=== PATIENT | female | born 1960 ===

== ENCOUNTER 2017-07-14 09:44 | Inpatient (IN) | payer BC ==
[2017-07-14 09:50] VITALS: BMI 32.5
--- NOTE | 2017-07-14 10:37 | ED PDOC ---
HPI: General Adult Time Seen by Provider: 07/14/17 10:24 Chief Complaint (Nursing): Back Pain Chief Complaint (Provider): neck pain History Per: Patient Additional Complaint(s): 56-year-old female presents to emergency department for evaluation of persistent neck pain ongoing for 2 months. Patient has been taking pain medication daily but still has persistent pain. She was told by her neurosurgeon , Dr. Basurto to come to emergency department today for further evaluation. Patient states she does have pain that radiates into upper extremities bilaterally intermittently. She denies any chest pain, shortness of breath or dyspnea on exertion upon arrival today. Past Medical History Reviewed: Historical Data, Nursing Documentation, Vital Signs Vital Signs: Last Vital Signs Temp 97.6 F 07/14/17 13:08 Pulse 76 07/14/17 13:50 Resp 18 07/14/17 13:50 BP 136/78 07/14/17 13:08 Pulse Ox 97 07/14/17 13:08 - Medical History PMH: Diabetes, HTN - Surgical History Surgical History: Appendectomy, (x 1) - Family History Family History: States: No Known Family Hx - Living Arrangements Living Arrangements: With Family - Social History Current smoker - smoking cessation education provided: No Alcohol: None Drugs: Denies - Home Medications Home Medications: Ambulatory Orders Medication Instructions Recorded Aspirin [Ecotrin] 81 mg PO DAILY 07/14/17 Dapagliflozin Propanediol [Farxiga] 10 mg PO DAILY 07/14/17 Dulaglutide [Trulicity] 1.5 mg SC WE 07/14/17 Fluticasone Nasal [Flonase] 1 spray SERGIO BID PRN 07/14/17 Glipizide [Glipizide ER] 2.5 mg PO DAILY 07/14/17 Ibuprofen/Famotidine [Duexis 1 tab PO Q8H PRN 07/14/17 800-26.6 mg Tablet] Losartan [Cozaar] 100 mg PO DAILY 07/14/17 Metformin HCl [Fortamet] 1,000 mg PO BID 07/14/17 Pioglitazone [Actos] 30 mg PO DAILY 07/14/17 Vortioxetine Hydrobromide 10 mg PO DAILY 07/14/17 [Trintellix] - Allergies Allergies/Adverse Reactions: Allergies Allergy/AdvReac Type Severity Reaction Status Date / Time No Known Allergies Allergy Verified 10/23/17 10:29 Review of Systems ROS Statement: Except As Marked, All Systems Reviewed And Found Negative Constitutional: Negative for: Fever Cardiovascular: Negative for: Chest Pain Gastrointestinal: Negative for: Nausea, Vomiting Musculoskeletal: Positive for: Neck Pain Neurological: Negative for: Headache, Dizziness Physical Exam - Reviewed Nursing Documentation Reviewed: Yes Vital Signs Reviewed: Yes - Physical Exam Appears: Positive for: Well, Non-toxic, No Acute Distress Skin: Negative for: Rash Eye Exam: Positive for: Normal appearance Neck: Positive for: Pain On Movement Of Neck (tenderness to cervical spine along midline and bilateral paraspinal regions, no step off) Cardiovascular/Chest: Positive for: Regular Rate, Rhythm Respiratory: Positive for: Normal Breath Sounds Gastrointestinal/Abdominal: Positive for: Soft. Negative for: Tenderness, Distended, Guarding, Rebound Extremity: Positive for: Normal ROM. Negative for: Pedal Edema Neurologic/Psych: Positive for: Alert, Oriented - Laboratory Results Result Diagrams: 07/14/17 10:45 07/14/17 10:45 Urine POC: Negative - ECG Interpretation Of ECG: NSR 84 bpm, no acute finding, reviewed by PA and ED attending. O2 Sat by Pulse Oximetry: 97 Pulse Ox Interpretation: Normal - Other Rad Chest bedside X-Ray: Interpreted by Me, Viewed By Me X-Ray Interpretation: no acute finding Medical Decision Making Medical Decision Makin56 year old with female with persistent neck pain Plan: CBC CMP PT/PTT UA CXR EKG IVF Case was d/w Dr. basurto's office, patient to be admitted for OR in the AM. Dr. James to admit. Case was d/w Dr. James. Patient is aware of and agrees with admission. Disposition - Clinical Impression Clinical Impression: Chronic neck pain, Intractable pain - Patient ED Disposition Is Patient to be Admitted: Yes - Disposition Disposition Time: 15:03 Condition: FAIR - Pt Status Changed To: Hospital Disposition Of: Inpatient - Admit Certification Admit to Inpatient:: After my assessment, the patient will require hospitalization for at least two midnights. This is because of the severity of symptoms shown, intensity of services needed, and/or the medical risk in this patient being treated as an outpatient. Results - Lab Results Lab Results: 07/14/17 07/14/17 07/14/17 10:45 10:45 10:45 WBC 11.8 H RBC 4.62 Hgb 12.8 Hct 37.7 MCV 81.7 MCH 27.7 MCHC 33.9 RDW 15.1 H Plt Count 295 MPV 7.6 Neut % (Auto) 69.3 Lymph % (Auto) 23.0 [place] % (Auto) 3.5 Eos % (Auto) 3.7 Baso % (Auto) 0.5 Neut # 8.2 H Lymph # 2.7 [place] # 0.4 Eos # 0.4 Baso # 0.1 PT 11.3 INR 1.0 APTT 30.5 Sodium Potassium Chloride Carbon Dioxide Anion Gap BUN Creatinine Est GFR ( Amer) Est GFR (Non-Af Amer) Random Glucose Calcium Total Bilirubin AST ALT Alkaline Phosphatase Total Protein Albumin Globulin Albumin/Globulin Ratio Urine Color Yellow Urine Clarity Cloudy Urine pH 5.0 Ur Specific [place] 1.021 Urine Protein 30 Urine Glucose (UA) >=500 Urine Ketones Negative Urine Blood Negative Urine Nitrate Negative Urine Bilirubin Negative Urine Urobilinogen 0.2-1.0 Ur Leukocyte Esterase Small Urine RBC (Auto) 6 H Urine Microscopic WBC 3 Ur Squamous Epith Cells 7 H Amorphous Sediment Rare H Urine Bacteria Few H Hyaline Casts 3-5 H 07/14/17 10:45 WBC RBC Hgb Hct MCV MCH MCHC RDW Plt Count MPV Neut % (Auto) Lymph % (Auto) [place] % (Auto) Eos % (Auto) Baso % (Auto) Neut # Lymph # [place] # Eos # Baso # PT INR APTT Sodium 138 Potassium 4.6 Chloride 102 Carbon Dioxide 23 Anion Gap 18 BUN 16 Creatinine 0.6 L Est GFR ( Amer) > 60 Est GFR (Non-Af Amer) > 60 Random Glucose 315 H Calcium 9.3 Total Bilirubin 0.6 AST 60 H ALT 49 Alkaline Phosphatase 115 Total Protein 8.6 H Albumin 4.4 Globulin 4.2 H Albumin/Globulin Ratio 1.0 Urine Color Urine Clarity Urine pH Ur Specific [place] Urine Protein Urine Glucose (UA) Urine Ketones Urine Blood Urine Nitrate Urine Bilirubin Urine Urobilinogen Ur Leukocyte Esterase Urine RBC (Auto) Urine Microscopic WBC Ur Squamous Epith Cells Amorphous Sediment Urine Bacteria Hyaline Casts
[2017-07-14] MEDS ORDERED: Sodium Chloride 0.9% 1,000 ML IV STA (10:38)
[2017-07-14 11:07] LABS: BASO # 0.1 K/uL (0.0-0.2); BASO % 0.5 % (0.0-2.0); EOS # 0.4 K/uL (0.0-0.7); EOS % 3.7 % (0.0-4.0); HEMATOCRIT 37.7 % (34.0-47.0); LYMPH # 2.7 K/uL (1.0-4.3); MEAN CELL VOLUME 81.7 fl (81.0-99.0); MEAN CORPUSCULAR HEMOGLOBIN 27.7 pg (27.0-31.0); MEAN CORPUSCULAR HGB CONC 33.9 g/dL (33.0-37.0); MEAN PLATELET VOLUME 7.6 fl (7.2-11.7); MONO # 0.4 K/uL (0.0-0.8); MONO % 3.5 % (0.0-10.0); NEUT # 8.2 K/uL (1.8-7.0); NEUT % 69.3 % (50.0-75.0); RED CELL DISTRIBUTION WIDTH 15.1 % (11.5-14.5); WHITE BLOOD COUNT 11.8 K/uL (4.8-10.8)
[2017-07-14 11:09] LABS: RBC URINE 6 /hpf (0-3); URINE BACTERIA FEW (<OCC); URINE BILIRUBIN NEGATIVE (NEGATIVE); URINE BLOOD NEGATIVE (NEGATIVE); URINE COLOR YELLOW (YELLOW); URINE GLUCOSE (UA) >=500 mg/dL (Normal); URINE KETONE NEGATIVE (NEGATIVE); URINE LEUKOCYTE ESTERASE SMALL Leu/uL (Negative); URINE PROTEIN 30 mg/dL (NEGATIVE); URINE UROBILINOGEN 0.2-1.0 mg/dL (0.2-1.0); WBC URINE 3 /hpf (0-5)
[2017-07-14 11:15] LABS: ALKALINE PHOSPHATASE 115 U/L (38-126); ALT/SGPT 49 U/L (9-52); AST/SGOT 60 U/L (14-36); BILIRUBIN,TOTAL 0.6 mg/dl (0.2-1.3); BLOOD UREA NITROGEN 16 mg/dl (7-17); CALCIUM 9.3 mg/dL (8.4-10.2); CARBON DIOXIDE 23 mmol/L (22-30); CHLORIDE 102 mmol/L (98-107); GFR AFRICAN-AMERICAN > 60; GLUCOSE,RANDOM 315 mg/dL (65-105); SODIUM 138 mmol/l (132-148); TOTAL PROTEIN 8.6 G/DL (6.3-8.2)
[2017-07-14 11:16] LABS: POTASSIUM 4.6 MMOL/L (3.6-5.0)
[2017-07-14 11:59] LABS: PARTIAL THROMBOPLASTIN TIME 30.5 Seconds (25.6-37.1)
--- NOTE | 2017-07-14 13:42 | RAD ---
HISTORY: clearance COMPARISON: No prior. FINDINGS: LUNGS: No active pulmonary disease. PLEURA: No significant pleural effusion identified, no pneumothorax apparent. CARDIOVASCULAR: Normal. OSSEOUS STRUCTURES: No significant abnormalities. VISUALIZED UPPER ABDOMEN: Normal. OTHER FINDINGS: None. IMPRESSION: No active disease.
[2017-07-14] MEDS ORDERED: Oxycodone/Acetaminophen 5/325 mg Tab PO PRN (15:05)
[2017-07-14] MEDS: Insulin Regular 100 units/ml SC SCH ×2 (17:44→22:03)
[2017-07-14] MEDS ORDERED: Dextrose 5%/Lactated Ringer's 1,000 ML IV SCH (23:59)
[2017-07-15] MEDS: Insulin Regular 100 units/ml SC SCH ×3 (06:41→22:06)
[2017-07-15 06:42] LABS: HEMATOCRIT 35.7 % (34.0-47.0); MEAN CELL VOLUME 83.1 fl (81.0-99.0); MEAN CORPUSCULAR HEMOGLOBIN 27.8 pg (27.0-31.0); MEAN CORPUSCULAR HGB CONC 33.4 g/dL (33.0-37.0); RED CELL DISTRIBUTION WIDTH 15.2 % (11.5-14.5); WHITE BLOOD COUNT 9.6 K/uL (4.8-10.8)
[2017-07-15 06:46] LABS: BLOOD UREA NITROGEN 13 mg/dl (7-17); CALCIUM 8.4 mg/dL (8.4-10.2); CARBON DIOXIDE 28 mmol/L (22-30); CHLORIDE 104 mmol/L (98-107); GFR AFRICAN-AMERICAN > 60; GLUCOSE,RANDOM 182 mg/dL (65-105); SODIUM 140 mmol/l (132-148)
[2017-07-15] MEDS ORDERED: Neostigmine Methylsulfate 2 MG/2 ML ML IV ONE ×2 (07:17→08:56)
[2017-07-15] MEDS ORDERED: Midazolam 2 MG/2 ML VIAL ONE (07:17)
[2017-07-15] MEDS ORDERED: Succinylcholine 200 mg/10 ml Inj IV ONE (07:17)
[2017-07-15] MEDS ORDERED: Lidocaine 4% (Laryng-O-Jet) Kit MM ONE (07:17)
[2017-07-15] MEDS ORDERED: Vecuronium 10 mg Inj ONE (07:17)
[2017-07-15] MEDS ORDERED: Propofol 10 mg/ml Inj (20 ML) ONE (07:17)
[2017-07-15] MEDS ORDERED: Lidocaine 1% 5ml Abboject IV ONE (07:17)
[2017-07-15] MEDS ORDERED: Dexamethasone 4 mg/1 ml ONE (07:19)
[2017-07-15] MEDS ORDERED: Rocuronium 10 mg/ml (5 ml) ONE (07:19)
[2017-07-15] MEDS ORDERED: Phenylephrine 10 mg/ml Inj ONE (07:22)
--- NOTE | 2017-07-15 07:33 | CARD ---
APPROVED REPORT EKG Measurement Heart [id number] <Conclusion> Normal sinus rhythm Rightward axis Borderline ECG
[2017-07-15] MEDS ORDERED: ceFAZolin IV 1 gm in Dextrose 1 GM/50 ML BAG IVPB ONE ×2 (07:35→16:30)
[2017-07-15] MEDS ORDERED: Absorbable Gelatin Sponge Size 100 ONE ×2 (07:36→07:44)
[2017-07-15] MEDS ORDERED: Bacitracin Ointment 30 GM TUBE ONE (07:36)
[2017-07-15] MEDS ORDERED: Thrombin Topical 5,000 IU Spray Kit ONE (07:36)
--- NOTE | 2017-07-15 07:39 | CP.PCM.CON ---
History of Present Illness - History of Present Illness History of Present Illness: Dr. Ga asked to see this 56 yo right hand dominant female with admitted with intractable neckpain radiating to LUE,longstanding and worsening over past few months,progressive weakness involving LLE as well,no relief with prior conservative management and medication,unable to perform daily ADL's, paresthesias and drops objects at times,ambulates holding on,outpt imaging reviewed of C spine and Lspine showing spondylosis,showing HNP's,severe cervical canal stenosis worse at C5-6,surgical and non surgical treatment d/w pt ,expressed understanding and due to worsening of her symptoms,agree's to proceed with ACDF for decompression. Past Patient History - Past Social History Alcohol: None Drugs: Denies - CARDIAC Hx Hypertension: Yes - ENDOCRINE/METABOLIC Hx Diabetes Mellitus Type 2: Yes - MUSCULOSKELETAL/RHEUMATOLOGICAL Hx Falls: No - PSYCHIATRIC Hx Substance Use: No - SURGICAL HISTORY Hx Appendectomy: Yes - ANESTHESIA Hx Anesthesia: Yes Hx Anesthesia Reactions: No Hx Malignant Hyperthermia: No Has any member of the family had a problem w/ anesthesia?: Yes Meds Allergies/Adverse Reactions: Allergies Allergy/AdvReac Type Severity Reaction Status Date / Time No Known Allergies Allergy Verified 07/14/17 10:29 - Medications Medications: Current Medications Famotidine (Pepcid) 20 mg PO DAILY [facility] Fluticasone Propionate (Flonase) 1 spr SERGIO BID PRN PRN Reason: Allergy symptoms Glipizide (Glucotrol Xl) 2.5 mg PO DAILY [facility] Home Med (Vortioxetine Hydrobromide [Trintellix]) 10 mg PO DAILY [facility] Dextrose/Lactated Ringer's (Dextrose 5%/Lactated Ringer's) 1,000 mls @ 75 mls/ hr IV .[id number] [facility] Stop: 07/15/17 14:49 Last Admin: 07/15/17 00:03 Dose: 75 mls/hr Insulin Human Regular (Humulin R) 0 units SC ACHS IESHA PRN Reason: Protocol Last Admin: 07/15/17 06:41 Dose: 1 u Ketorolac Tromethamine (Toradol) 15 mg IVP Q6 PRN PRN Reason: Pain, severe (8-10) Last Admin: 07/14/17 15:37 Dose: 15 mg Losartan Potassium (Cozaar) 100 mg PO DAILY [facility] Metformin HCl (Glucophage) 1,000 mg PO BIDWM [facility] Last Admin: 07/14/17 17:44 Dose: 1,000 mg Oxycodone/Acetaminophen (Percocet 5/325 Mg Tab) 1 tab PO Q4 PRN PRN Reason: Pain, moderate (4-7) Stop: 07/17/17 15:06 Pioglitazone HCl (Actos) 30 mg PO DAILY [facility] Physical Exam - Constitutional Appears: Well, Non-toxic, No Acute Distress - Head Exam Head Exam: ATRAUMATIC, NORMAL INSPECTION, NORMOCEPHALIC - Eye Exam Eye Exam: EOMI, Normal appearance, PERRL Pupil Exam: NORMAL ACCOMODATION - ENT Exam ENT Exam: Mucous Membranes Moist - Neck Exam Neck exam: Positive for: Normal Inspection, Tenderness - Respiratory Exam Respiratory Exam: Clear to Auscultation Bilateral - Cardiovascular Exam Cardiovascular Exam: REGULAR RHYTHM, +S1, +S2 - GI/Abdominal Exam GI & Abdominal Exam: Normal Bowel Sounds, Soft - Rectal Exam Rectal Exam: Deferred - Extremities Exam Extremities exam: Positive for: pedal pulses present - Back Exam Back exam: vertebral tenderness - Neurological Exam Neurological exam: Alert, Oriented x3 Additional comments: YU x 4 antigravity with LUE and LLE weakness4/5,decreased sensation LUE,LLE SLR ,depressed DTR's - Psychiatric Exam Psychiatric exam: Normal Affect, Normal Mood - Skin Skin Exam: Dry, Intact Results - Vital Signs Recent Vital Signs: Last Vital Signs Temp 97.5 F L 07/15/17 07:27 Pulse 71 07/15/17 07:27 Resp 18 07/15/17 07:27 BP 143/83 07/15/17 07:27 Pulse Ox 97 07/15/17 07:27 - Labs Result Diagrams: 07/15/17 06:00 07/15/17 06:00 Labs: Laboratory Results - last 24 hr 07/14/17 07/14/17 07/14/17 10:45 10:45 10:45 WBC RBC Hgb Hct MCV MCH MCHC RDW Plt Count MPV Neut % (Auto) Lymph % (Auto) [place] % (Auto) Eos % (Auto) Baso % (Auto) Neut # Lymph # [place] # Eos # Baso # PT 11.3 INR 1.0 APTT 30.5 Sodium 138 Potassium 4.6 Chloride 102 Carbon Dioxide 23 Anion Gap 18 BUN 16 Creatinine 0.6 L Est GFR ( Amer) > 60 Est GFR (Non-Af Amer) > 60 POC Glucose (mg/dL) Random Glucose 315 H Calcium 9.3 Total Bilirubin 0.6 AST 60 H ALT 49 Alkaline Phosphatase 115 Total Protein 8.6 H Albumin 4.4 Globulin 4.2 H Albumin/Globulin Ratio 1.0 Urine Color Yellow Urine Clarity Cloudy Urine pH 5.0 Ur Specific [place] 1.021 Urine Protein 30 Urine Glucose (UA) >=500 Urine Ketones Negative Urine Blood Negative Urine Nitrate Negative Urine Bilirubin Negative Urine Urobilinogen 0.2-1.0 Ur Leukocyte Esterase Small Urine RBC (Auto) 6 H Urine Microscopic WBC 3 Ur Squamous Epith Cells 7 H Amorphous Sediment Rare H Urine Bacteria Few H Hyaline Casts 3-5 H 07/14/17 07/14/17 07/14/17 10:45 13:17 16:13 WBC 11.8 H RBC 4.62 Hgb 12.8 Hct 37.7 MCV 81.7 MCH 27.7 MCHC 33.9 RDW 15.1 H Plt Count 295 MPV 7.6 Neut % (Auto) 69.3 Lymph % (Auto) 23.0 [place] % (Auto) 3.5 Eos % (Auto) 3.7 Baso % (Auto) 0.5 Neut # 8.2 H Lymph # 2.7 [place] # 0.4 Eos # 0.4 Baso # 0.1 PT INR APTT Sodium Potassium Chloride Carbon Dioxide Anion Gap BUN Creatinine Est GFR ( Amer) Est GFR (Non-Af Amer) POC Glucose (mg/dL) 252 H 256 H Random Glucose Calcium Total Bilirubin AST ALT Alkaline Phosphatase Total Protein Albumin Globulin Albumin/Globulin Ratio Urine Color Urine Clarity Urine pH Ur Specific [place] Urine Protein Urine Glucose (UA) Urine Ketones Urine Blood Urine Nitrate Urine Bilirubin Urine Urobilinogen Ur Leukocyte Esterase Urine RBC (Auto) Urine Microscopic WBC Ur Squamous Epith Cells Amorphous Sediment Urine Bacteria Hyaline Casts 07/14/17 07/15/17 07/15/17 21:11 05:51 06:00 WBC 9.6 RBC 4.29 Hgb 11.9 L Hct 35.7 MCV 83.1 MCH 27.8 MCHC 33.4 RDW 15.2 H Plt Count 258 MPV Neut % (Auto) Lymph % (Auto) [place] % (Auto) Eos % (Auto) Baso % (Auto) Neut # Lymph # [place] # Eos # Baso # PT INR APTT Sodium Potassium Chloride Carbon Dioxide Anion Gap BUN Creatinine Est GFR ( Amer) Est GFR (Non-Af Amer) POC Glucose (mg/dL) 221 H 192 H Random Glucose Calcium Total Bilirubin AST ALT Alkaline Phosphatase Total Protein Albumin Globulin Albumin/Globulin Ratio Urine Color Urine Clarity Urine pH Ur Specific [place] Urine Protein Urine Glucose (UA) Urine Ketones Urine Blood Urine Nitrate Urine Bilirubin Urine Urobilinogen Ur Leukocyte Esterase Urine RBC (Auto) Urine Microscopic WBC Ur Squamous Epith Cells Amorphous Sediment Urine Bacteria Hyaline Casts 07/15/17 06:00 WBC RBC Hgb Hct MCV MCH MCHC RDW Plt Count MPV Neut % (Auto) Lymph % (Auto) [place] % (Auto) Eos % (Auto) Baso % (Auto) Neut # Lymph # [place] # Eos # Baso # PT INR APTT Sodium 140 Potassium 4.0 Chloride 104 Carbon Dioxide 28 Anion Gap 12 BUN 13 Creatinine 0.6 L Est GFR ( Amer) > 60 Est GFR (Non-Af Amer) > 60 POC Glucose (mg/dL) Random Glucose 182 H Calcium 8.4 Total Bilirubin AST ALT Alkaline Phosphatase Total Protein Albumin Globulin Albumin/Globulin Ratio Urine Color Urine Clarity Urine pH Ur Specific [place] Urine Protein Urine Glucose (UA) Urine Ketones Urine Blood Urine Nitrate Urine Bilirubin Urine Urobilinogen Ur Leukocyte Esterase Urine RBC (Auto) Urine Microscopic WBC Ur Squamous Epith Cells Amorphous Sediment Urine Bacteria Hyaline Casts Assessment & Plan - Assessment and Plan (Free Text) Assessment: 56 yo female with cervical spondylosis myelopathy and 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
[2017-07-15] MEDS ORDERED: Lactated Ringer's 1,000 ML IV ONE (07:55)
[2017-07-15] MEDS ORDERED: HEMOSTATIC MATRIX 10 ML DIS.NEEDLE TOP ONE (08:32)
[2017-07-15] MEDS: HYDROmorphone 0.5 mg/0.5 ml ISec IVP PRN ×3 (09:20→09:50)
--- NOTE | 2017-07-15 10:07 | CP.PCM.HP ---
History of Present Illness - History of Present Illness History of Present Illness: 56 YO F was admitted for intractable neck pain radiating to her left arm. Has been progressively worsening. - Imaging reviewed of C spine and Lspine showing spondylosis,showing HNP's, severe cervical canal stenosis. PMH: none, DM, GERD, HTN PSH:appendectomy Allergys: None Present on Admission - Present on Admission Any Indicators Present on Admission: No Past Patient History - Past Social History Alcohol: None Drugs: Denies - CARDIAC Hx Hypertension: Yes - ENDOCRINE/METABOLIC Hx Diabetes Mellitus Type 2: Yes - MUSCULOSKELETAL/RHEUMATOLOGICAL Hx Falls: No - PSYCHIATRIC Hx Substance Use: No - SURGICAL HISTORY Hx Appendectomy: Yes - ANESTHESIA Hx Anesthesia: Yes Hx Anesthesia Reactions: No Hx Malignant Hyperthermia: No Has any member of the family had a problem w/ anesthesia?: Yes Meds Allergies/Adverse Reactions: Allergies Allergy/AdvReac Type Severity Reaction Status Date / Time No Known Allergies Allergy Verified 07/14/17 10:29 Physical Exam - Constitutional Appears: No Acute Distress - Respiratory Exam Respiratory Exam: Clear to Auscultation Bilateral. absent: Rhonchi, Wheezes - Cardiovascular Exam Cardiovascular Exam: REGULAR RHYTHM, +S1, +S2 - GI/Abdominal Exam GI & Abdominal Exam: Normal Bowel Sounds, Soft. absent: Tenderness - Neurological Exam Neurological exam: Alert, CN II-XII Intact, Oriented x3 Results - Vital Signs Recent Vital Signs: Last Vital Signs Temp 97.1 F L 07/15/17 09:35 Pulse 76 07/15/17 09:50 Resp 18 07/15/17 09:50 BP 156/75 H 07/15/17 09:50 Pulse Ox 100 07/15/17 09:50 - Labs Result Diagrams: 07/15/17 06:00 07/15/17 06:00 Labs: Laboratory Results - last 24 hr 07/14/17 07/14/17 07/14/17 10:45 10:45 10:45 WBC RBC Hgb Hct MCV MCH MCHC RDW Plt Count MPV Neut % (Auto) Lymph % (Auto) [place] % (Auto) Eos % (Auto) Baso % (Auto) Neut # Lymph # [place] # Eos # Baso # PT 11.3 INR 1.0 APTT 30.5 Sodium 138 Potassium 4.6 Chloride 102 Carbon Dioxide 23 Anion Gap 18 BUN 16 Creatinine 0.6 L Est GFR ( Amer) > 60 Est GFR (Non-Af Amer) > 60 POC Glucose (mg/dL) Random Glucose 315 H Calcium 9.3 Total Bilirubin 0.6 AST 60 H ALT 49 Alkaline Phosphatase 115 Total Protein 8.6 H Albumin 4.4 Globulin 4.2 H Albumin/Globulin Ratio 1.0 Beta HCG, Quant Urine Color Yellow Urine Clarity Cloudy Urine pH 5.0 Ur Specific [place] 1.021 Urine Protein 30 Urine Glucose (UA) >=500 Urine Ketones Negative Urine Blood Negative Urine Nitrate Negative Urine Bilirubin Negative Urine Urobilinogen 0.2-1.0 Ur Leukocyte Esterase Small Urine RBC (Auto) 6 H Urine Microscopic WBC 3 Ur Squamous Epith Cells 7 H Amorphous Sediment Rare H Urine Bacteria Few H Hyaline Casts 3-5 H 07/14/17 07/14/17 07/14/17 10:45 13:17 16:13 WBC 11.8 H RBC 4.62 Hgb 12.8 Hct 37.7 MCV 81.7 MCH 27.7 MCHC 33.9 RDW 15.1 H Plt Count 295 MPV 7.6 Neut % (Auto) 69.3 Lymph % (Auto) 23.0 [place] % (Auto) 3.5 Eos % (Auto) 3.7 Baso % (Auto) 0.5 Neut # 8.2 H Lymph # 2.7 [place] # 0.4 Eos # 0.4 Baso # 0.1 PT INR APTT Sodium Potassium Chloride Carbon Dioxide Anion Gap BUN Creatinine Est GFR ( Amer) Est GFR (Non-Af Amer) POC Glucose (mg/dL) 252 H 256 H Random Glucose Calcium Total Bilirubin AST ALT Alkaline Phosphatase Total Protein Albumin Globulin Albumin/Globulin Ratio Beta HCG, Quant Urine Color Urine Clarity Urine pH Ur Specific [place] Urine Protein Urine Glucose (UA) Urine Ketones Urine Blood Urine Nitrate Urine Bilirubin Urine Urobilinogen Ur Leukocyte Esterase Urine RBC (Auto) Urine Microscopic WBC Ur Squamous Epith Cells Amorphous Sediment Urine Bacteria Hyaline Casts 07/14/17 07/15/17 07/15/17 21:11 05:51 06:00 WBC 9.6 RBC 4.29 Hgb 11.9 L Hct 35.7 MCV 83.1 MCH 27.8 MCHC 33.4 RDW 15.2 H Plt Count 258 MPV Neut % (Auto) Lymph % (Auto) [place] % (Auto) Eos % (Auto) Baso % (Auto) Neut # Lymph # [place] # Eos # Baso # PT INR APTT Sodium Potassium Chloride Carbon Dioxide Anion Gap BUN Creatinine Est GFR ( Amer) Est GFR (Non-Af Amer) POC Glucose (mg/dL) 221 H 192 H Random Glucose Calcium Total Bilirubin AST ALT Alkaline Phosphatase Total Protein Albumin Globulin Albumin/Globulin Ratio Beta HCG, Quant Urine Color Urine Clarity Urine pH Ur Specific [place] Urine Protein Urine Glucose (UA) Urine Ketones Urine Blood Urine Nitrate Urine Bilirubin Urine Urobilinogen Ur Leukocyte Esterase Urine RBC (Auto) Urine Microscopic WBC Ur Squamous Epith Cells Amorphous Sediment Urine Bacteria Hyaline Casts 07/15/17 07/15/17 07/15/17 06:00 06:00 09:24 WBC RBC Hgb Hct MCV MCH MCHC RDW Plt Count MPV Neut % (Auto) Lymph % (Auto) [place] % (Auto) Eos % (Auto) Baso % (Auto) Neut # Lymph # [place] # Eos # Baso # PT INR APTT Sodium 140 Potassium 4.0 Chloride 104 Carbon Dioxide 28 Anion Gap 12 BUN 13 Creatinine 0.6 L Est GFR ( Amer) > 60 Est GFR (Non-Af Amer) > 60 POC Glucose (mg/dL) 179 H Random Glucose 182 H Calcium 8.4 Total Bilirubin AST ALT Alkaline Phosphatase Total Protein Albumin Globulin Albumin/Globulin Ratio Beta HCG, Quant 3.12 Urine Color Urine Clarity Urine pH Ur Specific [place] Urine Protein Urine Glucose (UA) Urine Ketones Urine Blood Urine Nitrate Urine Bilirubin Urine Urobilinogen Ur Leukocyte Esterase Urine RBC (Auto) Urine Microscopic WBC Ur Squamous Epith Cells Amorphous Sediment Urine Bacteria Hyaline Casts Assessment & Plan - Assessment and Plan (Free Text) Assessment: 1) Cervical spondylosis myelopathy and LUE radiculapathy - Patient is a low risk for surgical intervention after reviewing labs, history and physical - Neurosurgical consult requested 2) HTN - Continue home meds 3) DM2) - Continue home meds
[2017-07-15] MEDS ORDERED: Benzocaine/Menthol (Cepacol) Lozenge PO PRN (11:43)
[2017-07-15] MEDS: Oxycodone/Acetaminophen 5/325 mg Tab PO PRN ×2 (15:30→21:09)
[2017-07-15] MEDS: ceFAZolin IV 1 gm in Dextrose 1 GM/50 ML BAG IVPB SCH (16:40)
[2017-07-15] MEDS: Lactated Ringer's 1,000 ML IV SCH (18:55)
[2017-07-16] MEDS: ceFAZolin IV 1 gm in Dextrose 1 GM/50 ML BAG IVPB SCH ×3 (00:16→17:25)
[2017-07-16] MEDS ORDERED: ceFAZolin IV 1 gm in Dextrose 1 GM/50 ML BAG IVPB ONE (01:00)
[2017-07-16 05:54] LABS: BASO % 0.2 % (0.0-2.0); EOS % 0.2 % (0.0-4.0); HEMATOCRIT 35.5 % (34.0-47.0); LYMPH # 2.7 K/uL (1.0-4.3); LYMPH % 17.2 % (20.0-40.0); MEAN CELL VOLUME 83.5 fl (81.0-99.0); MEAN CORPUSCULAR HEMOGLOBIN 27.3 pg (27.0-31.0); MEAN CORPUSCULAR HGB CONC 32.7 g/dL (33.0-37.0); MEAN PLATELET VOLUME 7.2 fl (7.2-11.7); MONO % 6.2 % (0.0-10.0); NEUT # 11.8 K/uL (1.8-7.0); NEUT % 76.2 % (50.0-75.0); RED CELL DISTRIBUTION WIDTH 15.2 % (11.5-14.5); WHITE BLOOD COUNT 15.5 K/uL (4.8-10.8)
[2017-07-16 05:58] LABS: BLOOD UREA NITROGEN 13 mg/dl (7-17); CARBON DIOXIDE 27 mmol/L (22-30); CHLORIDE 100 mmol/L (98-107); GFR AFRICAN-AMERICAN > 60; GLUCOSE,RANDOM 204 mg/dL (65-105); POTASSIUM 4.1 MMOL/L (3.6-5.0); SODIUM 137 mmol/l (132-148)
[2017-07-16] MEDS: Oxycodone/Acetaminophen 5/325 mg Tab PO PRN ×4 (06:10→22:25)
[2017-07-16] MEDS: Lactated Ringer's 1,000 ML IV SCH ×2 (06:18→14:51)
[2017-07-16 07:56] LABS: CALCIUM 9.4 mg/dL (8.4-10.2)
--- NOTE | 2017-07-16 08:28 | RAD ---
PROCEDURE: Fluoroscopy over 1 hour HISTORY: ACDF COMPARISON: None TECHNIQUE: Total fluoroscopic time (continuous mode) utilized during the procedure: 11 seconds. FINDINGS: Submitted images from the current procedure: 1.0 IMPRESSION: Fluoroscopy greater than 1 hour.
[2017-07-16] MEDS: Insulin Regular 100 units/ml SC SCH ×4 (08:32→22:00)
[2017-07-16] MEDS: GlipiZIDE 2.5 mg SR Tab PO SCH (08:37)
--- NOTE | 2017-07-16 13:46 | OP ---
PROCEDURE DATE: 07/15/2017 PREOPERATIVE DIAGNOSIS: Cervical spondylosis with myelopathy. POSTOPERATIVE DIAGNOSIS: Cervical spondylosis with myelopathy. PROCEDURE: Partial vertebrectomy of C5 and C6, discectomy of C5-C6, interbody fusion of C5-C6 using PEEK and bone, plating and instrumentation C5 to C6 using Amendia plate. Fluoroscopy has been used. Microscopy has been used. SURGEON: Adithya Ga MD. HEAD OF DIGITAL ADVERTISING & INTEGRATION: Vicky Bergman, physician residential living assistant. Vicky Bergman had stayed throughout the case from the beginning to the end and helped me perform the surgery. DESCRIPTION OF PROCEDURE: Patient was brought to the operating room, anesthetized with general endotracheal anesthesia, placed in a supine position, head was placed on a doughnut. Care was taken to protect all pressure points. Right side of the neck was thoroughly prepped and draped in standard sterile manner after marking the skin incision for cervical vertebrectomy. After prepping and draping the area, skin has been incised, bleeding skins have been controlled with bipolar mortgage loan computation clerk. After using a Bovie mortgage loan computation clerk, platysma has been cut, dissection has been carried out between trachea and esophagus medially and sternomastoid carried out laterally. Prevertebral fascia had been cauterized and cut. Identification of levels has been done with the help of fluoroscopy. Longus colli has been detached, attachment of vertebral bodies of C5 and C6. Dyonics retractor has been applied. Rest of the operation has been carried out under microscopic illumination. PARTIAL VERTEBRECTOMY OF C5 AND C6, DISCECTOMY OF C5-C6: By using a high-speed drill, the vertebral bodies of C5-C6 have been drilled. Drilling is continued posteriorly. Intermittently, discectomy has been performed by using pituitary rongeurs and curettes. Partial vertebrectomy including half of the vertebral bodies and cartilages and plates have been done. The osteophytes have been drilled away and posterior longitudinal ligament has been opened. Dura has been taken from side to side. INTERBODY FUSION OF C5-C6 USING PEEK AND BONE: PEEK implant has been brought in, filled with demineralized bone. It was placed in the gap created at the partial vertebrectomy of C5-C6. Position has been confirmed to be good. PLATING AND INSTRUMENTATION C5 TO C6 USING AN AMENDIA PLATE: An Amendia plate has been placed at vertebral bodies of C5 and C6. By using 12 mm screw, it has been secured to the vertebral bodies under fluoroscopic guided control. After that, hemostasis was best achieved. Tomi drain was placed in the wound and brought out through a separate stab neck skin incision. Platysma closed with 3-0 Vicryl. Skin has been closed with intradermal 3-0 Vicryl stitches. Patient tolerated the procedure. After procedure, mobilized to the recovery room in stabilized condition. If we find the original, this can be deleted. Let us see if the first one has come through. Adithya Ga MD
--- NOTE | 2017-07-16 14:04 | CP.PCM.PN ---
Subjective - Date & Time of Evaluation Date of Evaluation: 07/16/17 Time of Evaluation: 08:05 - Subjective Subjective: - Patient was seen at bedside appears to be doing well. No overnight events reported. Pain is well controled with medications. Patient has a slight white count of 15.5, most likely secondary to steroids. Will keep one more day and discharge tomorrow. Objective - Vital Signs/Intake and Output Vital Signs (last 24 hours): Temp Pulse Resp BP Pulse Ox 97.9 F 75 20 102/69 95 07/16/17 12:00 07/16/17 12:00 07/16/17 12:00 07/16/17 12:00 07/16/17 12:00 Intake and Output: 07/16/17 07/16/17 06:59 18:59 Intake Total 1490 Output Total 10 Balance 1480 - Medications Medications: Current Medications Benzocaine/Menthol (Cepacol Sore Throat) 1 flaquita PO Q2 PRN PRN Reason: Sore Throat Docusate Sodium (Colace) 100 mg PO BID [facility] Last Admin: 07/16/17 08:31 Dose: 100 mg Famotidine (Pepcid) 20 mg PO DAILY [facility] Fluticasone Propionate (Flonase) 1 spr SERGIO BID PRN PRN Reason: Allergy symptoms Glipizide (Glucotrol Xl) 2.5 mg PO DAILY [facility] Last Admin: 07/16/17 08:37 Dose: 2.5 mg Lactated Ringer's (Lactated Ringer's) 1,000 mls @ 100 mls/hr IV .Q10H [facility] Last Admin: 07/16/17 06:18 Dose: 100 mls/hr Cefazolin Sodium/Dextrose (Ancef Iv 1 Gm Duplex) 1 gm in 50 mls @ 50 mls/hr IVPB Q8H [facility] PRN Reason: Protocol Last Admin: 07/16/17 08:48 Dose: 50 mls/hr Insulin Human Regular (Humulin R) 0 units SC ACHS [facility] PRN Reason: Protocol Last Admin: 07/16/17 08:32 Dose: 2 u Losartan Potassium (Cozaar) 100 mg PO DAILY [facility] Last Admin: 07/15/17 19:00 Dose: 100 mg Metformin HCl (Glucophage) 1,000 mg PO BIDWM [facility] Last Admin: 07/16/17 08:30 Dose: 1,000 mg Morphine Sulfate (Morphine) 2 mg IVP Q4 PRN PRN Reason: Pain, severe (8-10) Oxycodone/Acetaminophen (Percocet 5/325 Mg Tab) 1 tab PO Q4 PRN PRN Reason: Pain, Mild (1-3) Stop: 07/17/17 15:06 Oxycodone/Acetaminophen (Percocet 5/325 Mg Tab) 2 tab PO Q4 PRN PRN Reason: Pain, severe (8-10) Stop: 07/18/17 15:07 Last Admin: 07/16/17 06:10 Dose: 2 tab Pioglitazone HCl (Actos) 30 mg PO DAILY [facility] Last Admin: 07/16/17 08:31 Dose: 30 mg - Labs Labs: 07/16/17 05:20 07/16/17 05:20 PT 11.3 Seconds (9.8-13.1) 07/14/17 10:45 INR 1.0 (0.9-1.2) 07/14/17 10:45 APTT 30.5 Seconds (25.6-37.1) 07/14/17 10:45 - Constitutional Appears: No Acute Distress - Head Exam Head Exam: NORMAL INSPECTION - Eye Exam Eye Exam: Normal appearance - Respiratory Exam Respiratory Exam: Clear to Ausculation Bilateral, NORMAL BREATHING PATTERN. absent: Rhonchi, Wheezes - Cardiovascular Exam Cardiovascular Exam: REGULAR RHYTHM, +S1, +S2 - GI/Abdominal Exam GI & Abdominal Exam: Soft, Normal Bowel Sounds. absent: Tenderness - Neurological Exam Neurological Exam: Alert, Awake, CN II-XII Intact, Oriented x3. absent: Motor Sensory Deficit - Skin Skin Exam: Normal Color, Warm Assessment and Plan - Assessment and Plan (Free Text) Assessment: 1) Cervical spondylosis myelopathy and LUE radiculapathy - POD #1 ACDF C5-C6 - Remove drain - Post op Hb: 11.6 - WBC: 15.5, most liekly secondary to steroid dose after surgery. Will follow up in the AM. Patient has been afebrile overnight - F/U with CBC in the AM 2) HTN - Continue home meds 3) DM2) - Continue home meds
--- NOTE | 2017-07-16 15:03 | CP.PCM.PN ---
Subjective - Date & Time of Evaluation Date of Evaluation: 07/16/17 Time of Evaluation: 11:00 - Subjective Subjective: Patient states she is feeling ok. Pain is controlled with medication. She is tolerating liquids. Denies CP/SOB/n/v c/o a little dizziness at times when sitting up. She says the tingling in her arm has resolved. Objective - Vital Signs/Intake and Output Vital Signs (last 24 hours): Temp Pulse Resp BP Pulse Ox 97.9 F 75 20 102/69 95 07/16/17 12:00 07/16/17 12:00 07/16/17 12:00 07/16/17 12:00 07/16/17 12:00 Intake and Output: 07/16/17 07/16/17 06:59 18:59 Intake Total 1490 Output Total 10 Balance 1480 - Medications Medications: Current Medications Benzocaine/Menthol (Cepacol Sore Throat) 1 flaquita PO Q2 PRN PRN Reason: Sore Throat Docusate Sodium (Colace) 100 mg PO BID [facility] Last Admin: 07/16/17 08:31 Dose: 100 mg Enoxaparin Sodium (Lovenox) 40 mg SC DAILY [facility] PRN Reason: Protocol Famotidine (Pepcid) 20 mg PO DAILY [facility] Last Admin: 07/16/17 09:46 Dose: 20 mg Fluticasone Propionate (Flonase) 1 spr SERGIO BID PRN PRN Reason: Allergy symptoms Glipizide (Glucotrol Xl) 2.5 mg PO DAILY [facility] Last Admin: 07/16/17 08:37 Dose: 2.5 mg Lactated Ringer's (Lactated Ringer's) 1,000 mls @ 100 mls/hr IV .Q10H [facility] Last Admin: 07/16/17 14:51 Dose: 100 mls/hr Cefazolin Sodium/Dextrose (Ancef Iv 1 Gm Duplex) 1 gm in 50 mls @ 50 mls/hr IVPB Q8H [facility] PRN Reason: Protocol Last Admin: 07/16/17 08:48 Dose: 50 mls/hr Insulin Human Regular (Humulin R) 0 units SC ACHS [facility] PRN Reason: Protocol Last Admin: 07/16/17 12:10 Dose: 2 u Losartan Potassium (Cozaar) 100 mg PO DAILY [facility] Last Admin: 07/16/17 09:44 Dose: 100 mg Metformin HCl (Glucophage) 1,000 mg PO BIDWM [facility] Last Admin: 07/16/17 08:30 Dose: 1,000 mg Morphine Sulfate (Morphine) 2 mg IVP Q4 PRN PRN Reason: Pain, severe (8-10) Oxycodone/Acetaminophen (Percocet 5/325 Mg Tab) 1 tab PO Q4 PRN PRN Reason: Pain, Mild (1-3) Stop: 07/17/17 15:06 Oxycodone/Acetaminophen (Percocet 5/325 Mg Tab) 2 tab PO Q4 PRN PRN Reason: Pain, severe (8-10) Stop: 07/18/17 15:07 Last Admin: 07/16/17 06:10 Dose: 2 tab Pioglitazone HCl (Actos) 30 mg PO DAILY [facility] Last Admin: 07/16/17 08:31 Dose: 30 mg - Labs Labs: 07/16/17 05:20 07/16/17 05:20 PT 11.3 Seconds (9.8-13.1) 07/14/17 10:45 INR 1.0 (0.9-1.2) 07/14/17 10:45 APTT 30.5 Seconds (25.6-37.1) 07/14/17 10:45 - Neck Exam Additional comments: incision intact, dry, no erythema drain pulled - Neurological Exam Neuro motor strength exam: Left Upper Extremity: 4 (marine erector/add/abd), Right Upper Extremity: 5 Additional comments: sensation intact BUE C5-T1 Assessment and Plan (1) Cervical spondylosis with myelopathy Assessment & Plan: POD#1 s/p partial verterbrectom of C5/C6, discectomy of C6/C6, fusion C5/C6 -continue pain medication/PT/OT -patient lives on 3rd floor walk up, cont PT -d/c planning, labs in am -d/w Babu, agrees with above Status: Acute
[2017-07-16] MEDS: Enoxaparin 40 mg Syringe SC SCH (16:00)
[2017-07-17] MEDS: Oxycodone/Acetaminophen 5/325 mg Tab PO PRN ×2 (04:32→13:01)
[2017-07-17 05:38] LABS: BASO % 0.4 % (0.0-2.0); EOS # 0.4 K/uL (0.0-0.7); EOS % 3.3 % (0.0-4.0); HEMATOCRIT 35.9 % (34.0-47.0); LYMPH # 4.4 K/uL (1.0-4.3); MEAN CELL VOLUME 82.9 fl (81.0-99.0); MEAN CORPUSCULAR HEMOGLOBIN 27.5 pg (27.0-31.0); MEAN CORPUSCULAR HGB CONC 33.2 g/dL (33.0-37.0); MEAN PLATELET VOLUME 7.4 fl (7.2-11.7); MONO # 0.5 K/uL (0.0-0.8); MONO % 4.5 % (0.0-10.0); NEUT # 6.5 K/uL (1.8-7.0); NEUT % 54.8 % (50.0-75.0); RED CELL DISTRIBUTION WIDTH 15.3 % (11.5-14.5); WHITE BLOOD COUNT 11.8 K/uL (4.8-10.8)
[2017-07-17 05:41] LABS: ALB/GLOB RATIO 1.1 (1.0-2.1); ALKALINE PHOSPHATASE 84 U/L (38-126); ALT/SGPT 50 U/L (9-52); AST/SGOT 31 U/L (14-36); BILIRUBIN,TOTAL 0.4 mg/dl (0.2-1.3); BLOOD UREA NITROGEN 13 mg/dl (7-17); CARBON DIOXIDE 28 mmol/L (22-30); CHLORIDE 100 mmol/L (98-107); GFR AFRICAN-AMERICAN > 60; GLUCOSE,RANDOM 156 mg/dL (65-105); SODIUM 138 mmol/l (132-148); TOTAL PROTEIN 7.6 G/DL (6.3-8.2)
[2017-07-17] MEDS: Insulin Regular 100 units/ml SC SCH ×2 (08:29→12:56)
[2017-07-17] MEDS: GlipiZIDE 2.5 mg SR Tab PO SCH (09:07)
[2017-07-17] MEDS: Enoxaparin 40 mg Syringe SC SCH (09:08)
[2017-07-17 12:21] VITALS: O2SAT 94
[2017-07-17 15:45] VITALS: BP 127/70; PULSE 88; RESP 20; TEMP 97.9
== END 2017-07-17 16:25 | disposition home or self-care (01) | DRG 473 ==
LOC: H.ER 09:44 → H.ERHOLD 11:14 → H.MEDSURG1 13:04 → H.TEL 07-15 13:05
PROVIDERS: ADMIT Family Medicine; ATTEND Family Medicine
PROC: 0RG10A0 Fusion of Cervical Vertebral Joint with Interbody Fusion Device, Anterior Approach, Anterior Column, Open Approach (ICD-10-PCS; 2017-07-15)
PROC: 0RB30ZZ Excision of Cervical Vertebral Disc, Open Approach (ICD-10-PCS; principal; 2017-07-15 07:45)
DX: M47.12 Other spondylosis with myelopathy, cervical region (principal); I10 Essential (primary) hypertension; E11.9 Type 2 diabetes mellitus without complications; K21.9 Gastro-esophageal reflux disease without esophagitis; M50.122 Cervical disc disorder at C5-C6 level with radiculopathy